=== PATIENT | female | born 1970 ===

== ENCOUNTER 2018-01-27 11:22 | Inpatient (IN) | payer OTHER ==
[2018-01-27] MEDS ORDERED: Sodium Chloride 0.9% 1,000 ML IV STA (11:40)
--- NOTE | 2018-01-27 11:45 | ED PDOC ---
HPI: Abdomen Time Seen by Provider: 01/27/18 11:34 Chief Complaint (Nursing): Abdominal Pain Chief Complaint (Provider): ABD PAIN X 4 WEEKS History Per: Patient (48 Y/O FEMALE HERE WITH INTERMITTENT RUQ ABD PAIN X 4 WEEKS AFTER EATING. DENIES ANY URINARY DIFFICULTY/ DENIES ANY FEVERS/CHILLS. HAS H/O CXN. HAS BEEN STARTED ON OMEPRAZOLE BY PMD WITH NO IMPROVEMENT. HAS HAD US 8 DAYS AGO BUT STATES PAIN DRAMATICALLY WORSENING. DOES NOT KNOW RESULTS OF US OF YET.) Past Medical History Reviewed: Historical Data, Nursing Documentation, Vital Signs Vital Signs: Last Vital Signs Temp 98.6 F 01/27/18 11:28 Pulse 68 01/27/18 13:00 Resp 18 01/27/18 13:00 BP 120/70 01/27/18 13:00 Pulse Ox 98 01/27/18 17:17 - Family History Family History: States: No Known Family Hx - Home Medications Home Medications: Ambulatory Orders Medication Instructions Recorded Cyanocobalamin [Vitamin B12 1000 1 tab PO DAILY 01/27/18 mcg Tab] Omeprazole [Omeprazole] 20 mg PO DAILY PRN 01/27/18 Sucralfate [Carafate Tab] 1 gm PO ACHS 01/27/18 - Allergies Allergies/Adverse Reactions: Allergies Allergy/AdvReac Type Severity Reaction Status Date / Time No Known Allergies Allergy Verified 01/27/18 11:28 Review of Systems ROS Statement: Except As Marked, All Systems Reviewed And Found Negative Gastrointestinal: Positive for: Abdominal Pain Physical Exam - Reviewed Nursing Documentation Reviewed: Yes Vital Signs Reviewed: Yes - Physical Exam Appears: Positive for: Well, Non-toxic, No Acute Distress Head Exam: Positive for: ATRAUMATIC, NORMAL INSPECTION, NORMOCEPHALIC Skin: Positive for: Normal Color, Warm, DRY Eye Exam: Positive for: EOMI, Normal appearance, PERRL ENT: Positive for: Normal ENT Inspection Neck: Positive for: Normal, Painless ROM Cardiovascular/Chest: Positive for: Regular Rate, Rhythm Respiratory: Positive for: CNT, Normal Breath Sounds Gastrointestinal/Abdominal: Positive for: Normal Exam, Soft, Tenderness (RUQ TENDERNESS) Back: Positive for: Normal Inspection Extremity: Positive for: Normal ROM Neurologic/Psych: Positive for: Alert, Oriented - Laboratory Results Result Diagrams: 01/27/18 12:30 01/27/18 12:30 - ECG O2 Sat by Pulse Oximetry: 98 - Progress ED Course And Treament: PEPCID 20 MG IV X 1 DOSE ZOFRAN 4 MG IV X 1 DOSE NS 1 LITER WIDE OPEN EKG: NSR 62BPM NO ECTOPY NO ACUTE CHANGES ABDOMEN US RUQ: IMPRESSION: Calcified cholelithiasis with limited evaluation for wall thickening. If there is clinical concern for acute cholecystitis, nuclear medicine HIDA scan can be obtained to further evaluate patency of the cystic duct. Diffusely hypoechoic appearance of the pancreas with 4 mm calcification in the pancreatic tail. Findings may represent acute on chronic pancreatitis. Clinical correlation is recommended. CT ABD/PELVIS ORDEREDIMPRESSION: Cholelithiasis with nonspecific gallbladder wall edema, but without pericholecystic inflammation. Findings are equivocal for acute cholecystitis. Nuclear medicine HIDA scan can be obtained to evaluate patency of the cystic duct. Enlarged pancreas with loss of definition of pancreatic clefts. No peripancreatic inflammation. Findings are nonspecific, but can be seen in the setting of autoimmune pancreatitis. Clinical and serologic correlation is recommended. CASE D/W DR REDMAN CASE D/W SURG RESIDENT. CASE D/W DR. SOW 17:17P Disposition - Clinical Impression Clinical Impression: Cholelithiasis, RUQ abdominal pain - Patient ED Disposition Is Patient to be Admitted: Yes - Disposition Disposition Time: 17:07 Condition: FAIR - Pt Status Changed To: Hospital Disposition Of: Inpatient - Admit Certification Admit to Inpatient:: After my assessment, the patient will require hospitalization for at least two midnights. This is because of the severity of symptoms shown, intensity of services needed, and/or the medical risk in this patient being treated as an outpatient.
[2018-01-27 12:15] LABS: SQUAMOUS EPITHIAL 1 /hpf (0-5); URINE BILIRUBIN NEGATIVE (NEGATIVE); URINE BLOOD SMALL (NEGATIVE); URINE CLARITY SLIGHTY-CLOUDY (Clear); URINE COLOR YELLOW (YELLOW); URINE GLUCOSE (UA) NEG (Normal); URINE LEUKOCYTE ESTERASE TRACE Leu/uL (Negative); URINE PROTEIN NEGATIVE (NEGATIVE)
[2018-01-27 12:39] LABS: BASO % 0.7 % (0.0-2.0); EOS # 0.5 K/uL (0.0-0.7); EOS % 9.2 % (0.0-4.0); HEMOGLOBIN 14.5 g/dL (12.0-16.0); LYMPH # 1.2 K/uL (1.0-4.3); LYMPH % 24.4 % (20.0-40.0); MEAN CELL VOLUME 90.3 fl (81.0-99.0); MEAN CORPUSCULAR HEMOGLOBIN 30.9 pg (27.0-31.0); MEAN CORPUSCULAR HGB CONC 34.2 g/dL (33.0-37.0); MEAN PLATELET VOLUME 9.1 fl (7.2-11.7); MONO # 0.4 K/uL (0.0-0.8); MONO % 7.2 % (0.0-10.0); NEUT # 2.9 K/uL (1.8-7.0); NEUT % 58.5 % (50.0-75.0); NRBC % 0.1 % (0.0-0.0); RBC 4.7 Mil/uL (3.80-5.20)
[2018-01-27 12:54] LABS: ALB/GLOB RATIO 1.3 (1.0-2.1); ALBUMIN 4.6 g/dL (3.5-5.0); ALT/SGPT 56 U/L (9-52); AST/SGOT 53 U/L (14-36); BLOOD UREA NITROGEN 16 mg/dl (7-17); CALCIUM 9.7 mg/dL (8.4-10.2); GFR AFRICAN-AMERICAN > 60; GFR NON-AFRICAN AMERICAN > 60; LIPASE 117 U/L (23-300)
--- NOTE | 2018-01-27 13:27 | US ---
HISTORY: RUQ ABD PAIN; EVALUATE FOR GALLBLADDER DISEASE COMPARISON: None. TECHNIQUE: Sonographic evaluation of the right upper quadrant of the abdomen. FINDINGS: LIVER: Measures 11.0 cm in length. Normal echogenicity of the liver parenchyma. Hepatic granulomas. No intrahepatic bile duct dilatation. GALLBLADDER: Large gallstones, limiting evaluation for wall thickening. COMMON BILE DUCT: Measures 5 mm. No stones. No dilatation. PANCREAS: Hypoechoic appearance of the pancreas. 4 mm calcification in the pancreatic tail. No ductal dilatation. RIGHT KIDNEY: Measures 9.5 x 4.2 x 4.1 cm in length. Normal echogenicity. No calculus, mass, or hydronephrosis. AORTA: No aneurysmal dilatation. IVC: Unremarkable. OTHER FINDINGS: None . IMPRESSION: Calcified cholelithiasis with limited evaluation for wall thickening. If there is clinical concern for acute cholecystitis, nuclear medicine HIDA scan can be obtained to further evaluate patency of the cystic duct. Diffusely hypoechoic appearance of the pancreas with 4 mm calcification in the pancreatic tail. Findings may represent acute on chronic pancreatitis. Clinical correlation is recommended.
[2018-01-27] MEDS ORDERED: Iohexol 300 100 ML IJ ONE (15:36)
[2018-01-27] MEDS ORDERED: Sodium Chloride 0.9% 100 ML ONE (15:37)
--- NOTE | 2018-01-27 16:37 | CT ---
PROCEDURE: CT Abdomen and Pelvis with contrast HISTORY: R/O CHOLECYSTITIS COMPARISON: None. TECHNIQUE: Contrast dose: 85 mL Omnipaque 300 Radiation dose: Total exam DLP = 274.9 mGy-cm. This CT exam was performed using one or more of the following dose reduction techniques: Automated exposure control, adjustment of the mA and/or kV according to patient size, and/or use of iterative reconstruction technique. FINDINGS: LOWER THORAX: Unremarkable. LIVER: Hepatic steatosis. No gross lesion or ductal dilatation. GALLBLADDER AND BILE DUCTS: Cholelithiasis with nonspecific gallbladder wall edema. No pericholecystic inflammation. PANCREAS: Enlarged pancreas. No peripancreatic inflammation. No gross lesion or ductal dilatation. SPLEEN: Unremarkable. ADRENALS: Unremarkable. No mass. KIDNEYS AND URETERS: Unremarkable. No hydronephrosis. No solid mass. VASCULATURE: Unremarkable. No aortic aneurysm. BOWEL: Unremarkable. No obstruction. No gross mural thickening. APPENDIX: Normal appendix. PERITONEUM: Unremarkable. No free fluid. No free air. LYMPH NODES: Unremarkable. No enlarged lymph nodes. BLADDER: Unremarkable. REPRODUCTIVE: Unremarkable. BONES: No acute fracture. OTHER FINDINGS: None. IMPRESSION: Cholelithiasis with nonspecific gallbladder wall edema, but without pericholecystic inflammation. Findings are equivocal for acute cholecystitis. Nuclear medicine HIDA scan can be obtained to evaluate patency of the cystic duct. Enlarged pancreas with loss of definition of pancreatic clefts. No peripancreatic inflammation. Findings are nonspecific, but can be seen in the setting of autoimmune pancreatitis. Clinical and serologic correlation is recommended.
[2018-01-27] MEDS ORDERED: Piperacillin/Tazobact 3.375 GM in Sodium Chloride 0.9% 100 ML IVPB STA (16:45)
[2018-01-27] MEDS ORDERED: Piperacillin/Tazobact 3.375 gm Inj IVPB ONE (17:03)
--- NOTE | 2018-01-27 17:55 | CP.PCM.CON ---
<ParulRalph D - Last Filed: 01/27/18 17:49> History of Present Illness - History of Present Illness History of Present Illness: SURGERY CONSULT NOTE FOR DR. SOW 48F presents with abdominal pain that started 2 months ago. Pain is located in the RUQ and radiates to the right back. Pain has been on and off over the last 2 months. She admits the pain is associated with food, especially fatty foods. Patient denies nausea, vomiting, fevers or chills. She does not have any change in bowel movements. PMH: Gastritis PSH: , abdominal liposuction Social: Admits to smoking for one year last year, admits to social alcohol use, denies illicit drug use Allergies: NKDA Past Patient History - Past Social History Smoking Status: Never Smoked - PSYCHIATRIC Hx Substance Use: No - SURGICAL HISTORY Hx Section: Yes - ANESTHESIA Hx Anesthesia: Yes Hx Anesthesia Reactions: No Meds Allergies/Adverse Reactions: Allergies Allergy/AdvReac Type Severity Reaction Status Date / Time No Known Allergies Allergy Verified 01/27/18 11:28 Physical Exam - Constitutional Appears: Well, Non-toxic, No Acute Distress - Head Exam Head Exam: ATRAUMATIC - Eye Exam Eye Exam: EOMI, PERRL - Respiratory Exam Respiratory Exam: Clear to Auscultation Bilateral, NORMAL BREATHING PATTERN - Cardiovascular Exam Cardiovascular Exam: REGULAR RHYTHM, +S1, +S2 - GI/Abdominal Exam GI & Abdominal Exam: Soft, Tenderness (RUQ tenderness, +murphys sign). absent: Distended, Firm, Guarding, Rebound, Rigid - Extremities Exam Extremities exam: Negative for: pedal edema, tenderness - Neurological Exam Neurological exam: Alert, Oriented x3 - Skin Skin Exam: Dry, Intact, Normal Color, Warm Results - Vital Signs Recent Vital Signs: Last Vital Signs Temp 98.6 F 01/27/18 11:28 Pulse 68 01/27/18 13:00 Resp 18 01/27/18 13:00 BP 120/70 01/27/18 13:00 Pulse Ox 98 01/27/18 17:17 - Labs Result Diagrams: 01/27/18 12:30 01/27/18 12:30 Labs: Laboratory Results - last 24 hr 01/27/18 01/27/18 01/27/18 11:53 12:30 12:30 WBC 5.0 RBC 4.70 Hgb 14.5 Hct 42.4 MCV 90.3 MCH 30.9 MCHC 34.2 RDW 13.0 Plt Count 253 MPV 9.1 Neut % (Auto) 58.5 Lymph % (Auto) 24.4 [place] % (Auto) 7.2 Eos % (Auto) 9.2 H Baso % (Auto) 0.7 Neut # (Auto) 2.9 Lymph # (Auto) 1.2 [place] # (Auto) 0.4 Eos # (Auto) 0.5 Baso # (Auto) 0.0 Sodium 143 Potassium 5.3 H Chloride 103 Carbon Dioxide 25 Anion Gap 20 BUN 16 Creatinine 0.6 L Est GFR ( Amer) > 60 Est GFR (Non-Af Amer) > 60 Random Glucose 90 Calcium 9.7 Total Bilirubin 1.0 AST 53 H ALT 56 H Alkaline Phosphatase 117 Troponin I Total Protein 8.3 H Albumin 4.6 Globulin 3.7 Albumin/Globulin Ratio 1.3 Lipase 117 Urine Color Yellow Urine Clarity Slighty-cloudy Urine pH 5.0 Ur Specific Blanca 1.029 Urine Protein Negative Urine Glucose (UA) Neg Urine Ketones Negative Urine Blood Small Urine Nitrate Negative Urine Bilirubin Negative Urine Urobilinogen 2.0 H Ur Leukocyte Esterase Trace Urine RBC (Auto) 7 H Urine Microscopic WBC 1 Ur Squamous Epith Cells 1 01/27/18 12:58 WBC RBC Hgb Hct MCV MCH MCHC RDW Plt Count MPV Neut % (Auto) Lymph % (Auto) [place] % (Auto) Eos % (Auto) Baso % (Auto) Neut # (Auto) Lymph # (Auto) [place] # (Auto) Eos # (Auto) Baso # (Auto) Sodium Potassium Chloride Carbon Dioxide Anion Gap BUN Creatinine Est GFR ( Amer) Est GFR (Non-Af Amer) Random Glucose Calcium Total Bilirubin AST ALT Alkaline Phosphatase Troponin I 0.0210 Total Protein Albumin Globulin Albumin/Globulin Ratio Lipase Urine Color Urine Clarity Urine pH Ur Specific Blanca Urine Protein Urine Glucose (UA) Urine Ketones Urine Blood Urine Nitrate Urine Bilirubin Urine Urobilinogen Ur Leukocyte Esterase Urine RBC (Auto) Urine Microscopic WBC Ur Squamous Epith Cells Assessment & Plan - Assessment and Plan (Free Text) Assessment: 48F with cholecystitis Plan: NPO, IVF Antibiotics Pain control Nausea control HIDA ordered follow up result Discussed with Dr. Emy Teran, PGY2 <David Sow - Last Filed: 01/28/18 15:21> History of Present Illness - History of Present Illness History of Present Illness: Patient was seen and examined at the bedside. Agree with resident's note above. Currently states that abdominal pain has improved. Meds - Medications Medications: Current Medications Acetaminophen (Tylenol 325mg Tab) 650 mg PO Q6 PRN PRN Reason: Fever >100.4 F Famotidine (Pepcid) 20 mg IVP Q12 [facility] Last Admin: 01/28/18 08:51 Dose: 20 mg Sodium Chloride (Sodium Chloride 0.9%) 1,000 mls @ 125 mls/hr IV .Q8H [facility] Stop: 01/28/18 18:00 Last Admin: 01/28/18 09:01 Dose: 125 mls/hr Ampicillin Sodium/Sulbactam (Sodium 3 gm/ Sodium Chloride) 100 mls @ 100 mls/ hr IVPB Q6 RINA PRN Reason: Protocol Last Admin: 01/28/18 08:59 Dose: 100 mls/hr Morphine Sulfate (Morphine) 1 mg IVP Q4 PRN PRN Reason: Pain, moderate (4-7) Last Admin: 01/27/18 23:58 Dose: 1 mg Morphine Sulfate (Morphine) 2 mg IVP Q4 PRN PRN Reason: Pain, severe (8-10) Ondansetron HCl (Zofran Inj) 4 mg IVP Q4 PRN PRN Reason: Nausea/Vomiting Pantoprazole Sodium (Protonix Inj) 40 mg IVP BID [facility] Last Admin: 01/28/18 08:51 Dose: 40 mg Physical Exam - GI/Abdominal Exam Additional comments: soft, mildly tender in the epigastrium and RUQ, ND, BS+, no rebound, no guarding , negative Talbot's sign, well healed scars from prior surgeries Results - Vital Signs Recent Vital Signs: Last Vital Signs Temp 97.6 F 01/28/18 08:19 Pulse 60 01/28/18 08:19 Resp 18 01/28/18 08:19 BP 96/60 L 01/28/18 08:19 Pulse Ox 99 01/28/18 08:19 - Labs Result Diagrams: 01/28/18 05:25 01/28/18 05:25 Labs: Laboratory Results - last 24 hr 01/27/18 01/28/18 01/28/18 19:30 05:25 05:25 WBC 4.5 L RBC 4.29 Hgb 13.4 Hct 39.1 MCV 91.3 MCH 31.2 H MCHC 34.1 RDW 13.0 Plt Count 234 MPV 9.1 Neut % (Auto) 42.0 L Lymph % (Auto) 38.7 [place] % (Auto) 7.8 Eos % (Auto) 10.4 H Baso % (Auto) 1.1 Neut # (Auto) 1.9 Lymph # (Auto) 1.7 [place] # (Auto) 0.3 Eos # (Auto) 0.5 Baso # (Auto) 0.0 PT 11.0 INR 1.0 APTT 33.0 Sodium 144 Potassium 4.2 Chloride 105 Carbon Dioxide 25 Anion Gap 18 BUN 11 Creatinine 0.6 L Est GFR ( Amer) > 60 Est GFR (Non-Af Amer) > 60 Random Glucose 79 Calcium 8.5 Total Bilirubin 0.7 AST 32 ALT 65 H Alkaline Phosphatase 90 Total Protein 6.8 Albumin 3.8 Globulin 3.0 Albumin/Globulin Ratio 1.2 - Imaging and Cardiology US - abdomen Status: Image reviewed by me, Report reviewed by me Assessment & Plan - Assessment and Plan (Free Text) Plan: - start clear liquid diet - Pain control - IV fluids - Continue antibiotics - Zofran prn - repeat labs in am - Plan for cholecystectomy on 01/30/18 - Will follow
[2018-01-27] MEDS ORDERED: Pantoprazole 40 MG in Sodium Chloride 0.9% 100 ML IVPB SCH (19:45)
[2018-01-27] MEDS: Sodium Chloride 0.9% 1,000 ML IV SCH (20:56)
[2018-01-28 07:14] LABS: BASO % 1.1 % (0.0-2.0); EOS # 0.5 K/uL (0.0-0.7); EOS % 10.4 % (0.0-4.0); HEMOGLOBIN 13.4 g/dL (12.0-16.0); LYMPH # 1.7 K/uL (1.0-4.3); LYMPH % 38.7 % (20.0-40.0); MEAN CELL VOLUME 91.3 fl (81.0-99.0); MEAN CORPUSCULAR HEMOGLOBIN 31.2 pg (27.0-31.0); MEAN CORPUSCULAR HGB CONC 34.1 g/dL (33.0-37.0); MEAN PLATELET VOLUME 9.1 fl (7.2-11.7); MONO # 0.3 K/uL (0.0-0.8); MONO % 7.8 % (0.0-10.0); NEUT # 1.9 K/uL (1.8-7.0); NRBC % 0.1 % (0.0-0.0); RBC 4.29 Mil/uL (3.80-5.20); WHITE BLOOD COUNT 4.5 K/uL (4.8-10.8)
[2018-01-28 07:32] LABS: ALB/GLOB RATIO 1.2 (1.0-2.1); ALBUMIN 3.8 g/dL (3.5-5.0); ALT/SGPT 65 U/L (9-52); AST/SGOT 32 U/L (14-36); BLOOD UREA NITROGEN 11 mg/dl (7-17); CALCIUM 8.5 mg/dL (8.4-10.2); GFR AFRICAN-AMERICAN > 60; GFR NON-AFRICAN AMERICAN > 60
--- NOTE | 2018-01-28 08:49 | CP.PCM.PN ---
<ArpanNusrat - Last Filed: 01/28/18 08:46> Subjective - Date & Time of Evaluation Date of Evaluation: 01/28/18 Time of Evaluation: 08:46 - Subjective Subjective: Surgery Patient seen and examined. Pain controlled. Denies Fever, chills, nausea, vomiting, diarrhea, chest pain. + amb. Objective - Vital Signs/Intake and Output Vital Signs (last 24 hours): Temp Pulse Resp BP Pulse Ox 97.6 F 60 18 96/60 L 99 01/28/18 08:19 01/28/18 08:19 01/28/18 08:19 01/28/18 08:19 01/28/18 08:19 - Medications Medications: Current Medications Acetaminophen (Tylenol 325mg Tab) 650 mg PO Q6 PRN PRN Reason: Fever >100.4 F Famotidine (Pepcid) 20 mg IVP Q12 [facility] Last Admin: 01/27/18 21:22 Dose: 20 mg Sodium Chloride (Sodium Chloride 0.9%) 1,000 mls @ 125 mls/hr IV .Q8H [facility] Stop: 01/28/18 18:00 Last Admin: 01/27/18 20:56 Dose: 125 mls/hr Ampicillin Sodium/Sulbactam (Sodium 3 gm/ Sodium Chloride) 100 mls @ 100 mls/ hr IVPB Q6 RINA PRN Reason: Protocol Last Admin: 01/28/18 04:53 Dose: 100 mls/hr Morphine Sulfate (Morphine) 1 mg IVP Q4 PRN PRN Reason: Pain, moderate (4-7) Last Admin: 01/27/18 23:58 Dose: 1 mg Morphine Sulfate (Morphine) 2 mg IVP Q4 PRN PRN Reason: Pain, severe (8-10) Ondansetron HCl (Zofran Inj) 4 mg IVP Q4 PRN PRN Reason: Nausea/Vomiting Pantoprazole Sodium (Protonix Inj) 40 mg IVP BID [facility] Last Admin: 01/27/18 22:54 Dose: 40 mg - Labs Labs: 01/28/18 05:25 01/28/18 05:25 PT 11.0 Seconds (9.8-13.1) 01/27/18 19:30 INR 1.0 (0.9-1.2) 01/27/18 19:30 APTT 33.0 Seconds (25.6-37.1) 01/27/18 19:30 - Constitutional Appears: No Acute Distress - Head Exam Head Exam: ATRAUMATIC, NORMAL INSPECTION, NORMOCEPHALIC - Eye Exam Eye Exam: EOMI, Normal appearance, PERRL Pupil Exam: NORMAL ACCOMODATION, PERRL - ENT Exam ENT Exam: Mucous Membranes Moist, Normal Exam - Neck Exam Neck Exam: Full ROM, Normal Inspection. absent: Lymphadenopathy - Respiratory Exam Respiratory Exam: Clear to Ausculation Bilateral, NORMAL BREATHING PATTERN - Cardiovascular Exam Cardiovascular Exam: REGULAR RHYTHM, +S1, +S2. absent: Murmur - GI/Abdominal Exam GI & Abdominal Exam: Soft, Tenderness, Normal Bowel Sounds Additional comments: RUQ TTP - Extremities Exam Extremities Exam: Full ROM, Normal Capillary Refill, Normal Inspection. absent : Joint Swelling, Pedal Edema - Back Exam Back Exam: NORMAL INSPECTION - Neurological Exam Neurological Exam: Alert, Awake, CN II-XII Intact, Normal Gait, Oriented x3 - Psychiatric Exam Psychiatric exam: Normal Affect, Normal Mood - Skin Skin Exam: Dry, Intact, Normal Color, Warm Assessment and Plan - Assessment and Plan (Free Text) Assessment: 48F with cholecystitis Plan: IVF Antibiotics Pain control Nausea control HIDA ordered follow up result Will Discuss with Dr. Quevedo <David Quevedo - Last Filed: 01/28/18 15:42> Subjective - Date & Time of Evaluation Time of Evaluation: 14:45 - Subjective Subjective: Patient was seen and examined at the bedside. Agree with resident's note above. Objective - Vital Signs/Intake and Output Vital Signs (last 24 hours): Temp Pulse Resp BP Pulse Ox 97.6 F 60 18 96/60 L 99 01/28/18 08:19 01/28/18 08:19 01/28/18 08:19 01/28/18 08:19 01/28/18 08:19 - Medications Medications: Current Medications Acetaminophen (Tylenol 325mg Tab) 650 mg PO Q6 PRN PRN Reason: Fever >100.4 F Famotidine (Pepcid) 20 mg IVP Q12 [facility] Last Admin: 01/28/18 08:51 Dose: 20 mg Sodium Chloride (Sodium Chloride 0.9%) 1,000 mls @ 125 mls/hr IV .Q8H [facility] Stop: 01/28/18 18:00 Last Admin: 01/28/18 09:01 Dose: 125 mls/hr Ampicillin Sodium/Sulbactam (Sodium 3 gm/ Sodium Chloride) 100 mls @ 100 mls/ hr IVPB Q6 RINA PRN Reason: Protocol Last Admin: 01/28/18 08:59 Dose: 100 mls/hr Morphine Sulfate (Morphine) 1 mg IVP Q4 PRN PRN Reason: Pain, moderate (4-7) Last Admin: 01/27/18 23:58 Dose: 1 mg Morphine Sulfate (Morphine) 2 mg IVP Q4 PRN PRN Reason: Pain, severe (8-10) Ondansetron HCl (Zofran Inj) 4 mg IVP Q4 PRN PRN Reason: Nausea/Vomiting Pantoprazole Sodium (Protonix Inj) 40 mg IVP BID [facility] Last Admin: 01/28/18 08:51 Dose: 40 mg - Labs Labs: 01/28/18 05:25 01/28/18 05:25 PT 11.0 Seconds (9.8-13.1) 01/27/18 19:30 INR 1.0 (0.9-1.2) 01/27/18 19:30 APTT 33.0 Seconds (25.6-37.1) 01/27/18 19:30 Assessment and Plan - Assessment and Plan (Free Text) Plan: - start clear liquid diet - pain control - IV fluids - Antibiotics - Repeat labs in am - Plan for cholecystectomy on 01/30/18 - Will follow
[2018-01-28] MEDS: Sodium Chloride 0.9% 1,000 ML IV SCH ×3 (09:01→18:26)
--- NOTE | 2018-01-28 09:32 | CP.PCM.HP ---
History of Present Illness - History of Present Illness History of Present Illness: Cc: Abdominal pain A 48 year old female with a history of gastritis who presented to the ED with complains of abdominal pain off and on x 2 months. The pain is mostly localized in the RUQ and radiated to the back. The pain is sharp, 8/10 in severity and aggravated with food especially fatty foods. Patient denies nausea, vomiting or diarrhea, chest pain, sob, fever or chills. CT of Abd/Pelvis showed cholelithiasis with gall bladder wall thickening. The patient was admitted for further management. Present on Admission - Present on Admission Any Indicators Present on Admission: No Review of Systems - Review of Systems All systems: reviewed and no additional remarkable complaints except (as stated) - Constitutional Constitutional: absent: Chills, Fever - Cardiovascular Cardiovascular: absent: Chest Pain, Dyspnea - Respiratory Respiratory: absent: Dyspnea - Gastrointestinal Gastrointestinal: Abdominal Pain, Heartburn. absent: Nausea, Vomiting Past Patient History - Infectious Disease Hx of Infectious Diseases: None - Past Medical History & Family History Past Medical History?: Yes - Past Social History Smoking Status: Never Smoked - CARDIAC Hx Cardiac Disorders: No - PULMONARY Hx Respiratory Disorders: No - NEUROLOGICAL Hx Neurological Disorder: No - HEENT Hx HEENT Problems: No - RENAL Hx Chronic Kidney Disease: No - ENDOCRINE/METABOLIC Hx Endocrine Disorders: No - HEMATOLOGICAL/ONCOLOGICAL Hx Blood Disorders: No Hx AIDS: No Hx Human Immunodeficiency Virus (HIV): No - MUSCULOSKELETAL/RHEUMATOLOGICAL Hx Falls: No Hx Osteoporosis: Yes - GASTROINTESTINAL Hx Gastritis: Yes - GENITOURINARY/GYNECOLOGICAL Hx Genitourinary Disorders: No - PSYCHIATRIC Hx Psychophysiologic Disorder: No Hx Substance Use: No - SURGICAL HISTORY Hx Surgeries: Yes Hx Section: Yes Other/Comment: liposuction - ANESTHESIA Hx Anesthesia: Yes Hx Anesthesia Reactions: No Hx Malignant Hyperthermia: No Has any member of the family had a problem w/ anesthesia?: No Meds Allergies/Adverse Reactions: Allergies Allergy/AdvReac Type Severity Reaction Status Date / Time No Known Allergies Allergy Verified 01/27/18 11:28 Physical Exam - Constitutional Appears: Well, No Acute Distress - Head Exam Head Exam: ATRAUMATIC, NORMOCEPHALIC - Eye Exam Eye Exam: EOMI, Normal appearance, PERRL Pupil Exam: NORMAL ACCOMODATION, PERRL - ENT Exam ENT Exam: Mucous Membranes Moist, Normal Exam - Neck Exam Neck exam: Positive for: Full Rom, Normal Inspection - Respiratory Exam Respiratory Exam: Clear to Auscultation Bilateral, NORMAL BREATHING PATTERN - Cardiovascular Exam Cardiovascular Exam: REGULAR RHYTHM, +S1, +S2 - GI/Abdominal Exam GI & Abdominal Exam: Normal Bowel Sounds, Soft, Tenderness (slight) - Rectal Exam Rectal Exam: Deferred - Extremities Exam Extremities exam: Positive for: full ROM, normal inspection - Back Exam Back exam: NORMAL INSPECTION - Neurological Exam Neurological exam: Alert, CN II-XII Intact, Oriented x3 - Psychiatric Exam Psychiatric exam: Normal Affect, Normal Mood - Skin Skin Exam: Dry, Normal Color, Warm Results - Vital Signs Recent Vital Signs: Last Vital Signs Temp 97.6 F 01/28/18 08:19 Pulse 60 01/28/18 08:19 Resp 18 01/28/18 08:19 BP 96/60 L 01/28/18 08:19 Pulse Ox 99 01/28/18 08:19 - Labs Result Diagrams: 01/30/18 08:23 01/29/18 05:30 Labs: Laboratory Results - last 24 hr 01/27/18 01/27/18 01/27/18 11:53 12:30 12:30 WBC 5.0 RBC 4.70 Hgb 14.5 Hct 42.4 MCV 90.3 MCH 30.9 MCHC 34.2 RDW 13.0 Plt Count 253 MPV 9.1 Neut % (Auto) 58.5 Lymph % (Auto) 24.4 [place] % (Auto) 7.2 Eos % (Auto) 9.2 H Baso % (Auto) 0.7 Neut # (Auto) 2.9 Lymph # (Auto) 1.2 [place] # (Auto) 0.4 Eos # (Auto) 0.5 Baso # (Auto) 0.0 PT INR APTT Sodium 143 Potassium 5.3 H Chloride 103 Carbon Dioxide 25 Anion Gap 20 BUN 16 Creatinine 0.6 L Est GFR ( Amer) > 60 Est GFR (Non-Af Amer) > 60 Random Glucose 90 Calcium 9.7 Total Bilirubin 1.0 AST 53 H ALT 56 H Alkaline Phosphatase 117 Troponin I Total Protein 8.3 H Albumin 4.6 Globulin 3.7 Albumin/Globulin Ratio 1.3 Lipase 117 Urine Color Yellow Urine Clarity Slighty-cloudy Urine pH 5.0 Ur Specific [place] 1.029 Urine Protein Negative Urine Glucose (UA) Neg Urine Ketones Negative Urine Blood Small Urine Nitrate Negative Urine Bilirubin Negative Urine Urobilinogen 2.0 H Ur Leukocyte Esterase Trace Urine RBC (Auto) 7 H Urine Microscopic WBC 1 Ur Squamous Epith Cells 1 01/27/18 01/27/18 01/28/18 12:58 19:30 05:25 WBC 4.5 L RBC 4.29 Hgb 13.4 Hct 39.1 MCV 91.3 MCH 31.2 H MCHC 34.1 RDW 13.0 Plt Count 234 MPV 9.1 Neut % (Auto) 42.0 L Lymph % (Auto) 38.7 [place] % (Auto) 7.8 Eos % (Auto) 10.4 H Baso % (Auto) 1.1 Neut # (Auto) 1.9 Lymph # (Auto) 1.7 [place] # (Auto) 0.3 Eos # (Auto) 0.5 Baso # (Auto) 0.0 PT 11.0 INR 1.0 APTT 33.0 Sodium Potassium Chloride Carbon Dioxide Anion Gap BUN Creatinine Est GFR ( Amer) Est GFR (Non-Af Amer) Random Glucose Calcium Total Bilirubin AST ALT Alkaline Phosphatase Troponin I 0.0210 Total Protein Albumin Globulin Albumin/Globulin Ratio Lipase Urine Color Urine Clarity Urine pH Ur Specific [place] Urine Protein Urine Glucose (UA) Urine Ketones Urine Blood Urine Nitrate Urine Bilirubin Urine Urobilinogen Ur Leukocyte Esterase Urine RBC (Auto) Urine Microscopic WBC Ur Squamous Epith Cells 01/28/18 05:25 WBC RBC Hgb Hct MCV MCH MCHC RDW Plt Count MPV Neut % (Auto) Lymph % (Auto) [place] % (Auto) Eos % (Auto) Baso % (Auto) Neut # (Auto) Lymph # (Auto) [place] # (Auto) Eos # (Auto) Baso # (Auto) PT INR APTT Sodium 144 Potassium 4.2 Chloride 105 Carbon Dioxide 25 Anion Gap 18 BUN 11 Creatinine 0.6 L Est GFR ( Amer) > 60 Est GFR (Non-Af Amer) > 60 Random Glucose 79 Calcium 8.5 Total Bilirubin 0.7 AST 32 ALT 65 H Alkaline Phosphatase 90 Troponin I Total Protein 6.8 Albumin 3.8 Globulin 3.0 Albumin/Globulin Ratio 1.2 Lipase Urine Color Urine Clarity Urine pH Ur Specific [place] Urine Protein Urine Glucose (UA) Urine Ketones Urine Blood Urine Nitrate Urine Bilirubin Urine Urobilinogen Ur Leukocyte Esterase Urine RBC (Auto) Urine Microscopic WBC Ur Squamous Epith Cells - Imaging and Cardiology CT Abd/Pelvis Additional comment: IMPRESSION: Cholelithiasis with nonspecific gallbladder wall edema, but without pericholecystic inflammation. Findings are equivocal for acute cholecystitis. Nuclear medicine HIDA scan can be obtained to evaluate patency of the cystic duct. Enlarged pancreas with loss of definition of pancreatic clefts. No peripancreatic inflammation. Findings are nonspecific, but can be seen in the setting of autoimmune pancreatitis. Clinical and serologic correlation is recommended. Assessment & Plan (1) Cholecystitis Assessment and Plan: IV antibiotics Surgery consult, cholecystectomy planned for tuesday IVF Pepcid q12 hrs clear liquid diet pain medications anti-emetics prn Patient is medically stable for planned surgery Status: Acute Priority: High
--- NOTE | 2018-01-28 11:40 | CARD ---
APPROVED REPORT EKG Measurement Heart [id number] <Conclusion> Normal sinus rhythm Normal ECG
--- NOTE | 2018-01-29 01:22 | CP.PCM.CON ---
History of Present Illness - History of Present Illness History of Present Illness: 48 yo female admitted after having RUQ pain for 1-2 months. Was given Omeprazole 20 BID by PMD witout improvement. Pain became more intense and patient came to ER. Review of Systems - Constitutional Constitutional: absent: Chills - EENT Eyes: absent: Blurred Vision Ears: absent: Decreased Hearing Nose/Mouth/Throat: absent: Epistaxis - Cardiovascular Cardiovascular: absent: Chest Pain - Respiratory Respiratory: absent: Dyspnea - Gastrointestinal Gastrointestinal: As Per HPI - Genitourinary Genitourinary: absent: Change in Urinary Stream Past Patient History - Past Medical History & Family History Past Medical History?: Yes - Past Social History Smoking Status: Never Smoked - CARDIAC Hx Cardiac Disorders: No - PULMONARY Hx Respiratory Disorders: No - NEUROLOGICAL Hx Neurological Disorder: No - HEENT Hx HEENT Problems: No - RENAL Hx Chronic Kidney Disease: No - ENDOCRINE/METABOLIC Hx Endocrine Disorders: No - HEMATOLOGICAL/ONCOLOGICAL Hx Blood Disorders: No Hx AIDS: No Hx Human Immunodeficiency Virus (HIV): No - MUSCULOSKELETAL/RHEUMATOLOGICAL Hx Falls: No Hx Osteoporosis: Yes - GASTROINTESTINAL Hx Gastritis: Yes - GENITOURINARY/GYNECOLOGICAL Hx Genitourinary Disorders: No - PSYCHIATRIC Hx Psychophysiologic Disorder: No Hx Substance Use: No - SURGICAL HISTORY Hx Surgeries: Yes Hx Section: Yes Other/Comment: liposuction - ANESTHESIA Hx Anesthesia: Yes Hx Anesthesia Reactions: No Hx Malignant Hyperthermia: No Has any member of the family had a problem w/ anesthesia?: No Meds Allergies/Adverse Reactions: Allergies Allergy/AdvReac Type Severity Reaction Status Date / Time No Known Allergies Allergy Verified 01/27/18 11:28 - Medications Medications: Current Medications Acetaminophen (Tylenol 325mg Tab) 650 mg PO Q6 PRN PRN Reason: Fever >100.4 F Famotidine (Pepcid) 20 mg IVP Q12 [facility] Last Admin: 01/28/18 22:36 Dose: 20 mg Ampicillin Sodium/Sulbactam (Sodium 3 gm/ Sodium Chloride) 100 mls @ 100 mls/ hr IVPB Q6 [facility] PRN Reason: Protocol Last Admin: 01/28/18 22:38 Dose: 100 mls/hr Morphine Sulfate (Morphine) 1 mg IVP Q4 PRN PRN Reason: Pain, moderate (4-7) Last Admin: 01/27/18 23:58 Dose: 1 mg Morphine Sulfate (Morphine) 2 mg IVP Q4 PRN PRN Reason: Pain, severe (8-10) Ondansetron HCl (Zofran Inj) 4 mg IVP Q4 PRN PRN Reason: Nausea/Vomiting Pantoprazole Sodium (Protonix Inj) 40 mg IVP BID [facility] Last Admin: 01/28/18 18:19 Dose: 40 mg Physical Exam - Constitutional Appears: No Acute Distress - Head Exam Head Exam: NORMAL INSPECTION - Eye Exam Eye Exam: Normal appearance - ENT Exam ENT Exam: Mucous Membranes Moist - Neck Exam Neck exam: Positive for: Normal Inspection - Respiratory Exam Respiratory Exam: Clear to Auscultation Bilateral - Cardiovascular Exam Cardiovascular Exam: REGULAR RHYTHM - GI/Abdominal Exam GI & Abdominal Exam: Normal Bowel Sounds, Soft, Tenderness Additional comments: tender RUQ Results - Vital Signs Recent Vital Signs: Last Vital Signs Temp 97.4 F L 01/29/18 00:19 Pulse 68 01/29/18 00:19 Resp 18 01/29/18 00:19 BP 94/59 L 01/29/18 00:19 Pulse Ox 97 01/29/18 00:19 - Labs Result Diagrams: 01/28/18 05:25 01/28/18 05:25 Labs: Laboratory Results - last 24 hr 01/28/18 01/28/18 05:25 05:25 WBC 4.5 L RBC 4.29 Hgb 13.4 Hct 39.1 MCV 91.3 MCH 31.2 H MCHC 34.1 RDW 13.0 Plt Count 234 MPV 9.1 Neut % (Auto) 42.0 L Lymph % (Auto) 38.7 [place] % (Auto) 7.8 Eos % (Auto) 10.4 H Baso % (Auto) 1.1 Neut # (Auto) 1.9 Lymph # (Auto) 1.7 [place] # (Auto) 0.3 Eos # (Auto) 0.5 Baso # (Auto) 0.0 Sodium 144 Potassium 4.2 Chloride 105 Carbon Dioxide 25 Anion Gap 18 BUN 11 Creatinine 0.6 L Est GFR ( Amer) > 60 Est GFR (Non-Af Amer) > 60 Random Glucose 79 Calcium 8.5 Total Bilirubin 0.7 AST 32 ALT 65 H Alkaline Phosphatase 90 Total Protein 6.8 Albumin 3.8 Globulin 3.0 Albumin/Globulin Ratio 1.2 - Imaging and Cardiology CT scan - abdomen Status: Report reviewed by me Additional comment: IMPRESSION: Calcified cholelithiasis with limited evaluation for wall thickening. If there is clinical concern for acute cholecystitis, nuclear medicine HIDA scan can be obtained to further evaluate patency of the cystic duct. Diffusely hypoechoic appearance of the pancreas with 4 mm calcification in the pancreatic tail. Findings may represent acute on chronic pancreatitis. Clinical correlation is recommended. CT ABD/PELVIS ORDEREDIMPRESSION: Cholelithiasis with nonspecific gallbladder wall edema, but without pericholecystic inflammation. Findings are equivocal for acute cholecystitis. Nuclear medicine HIDA scan can be obtained to evaluate patency of the cystic duct. Enlarged pancreas with loss of definition of pancreatic clefts. No peripancreatic inflammation. Findings are nonspecific, but can be seen in the setting of autoimmune pancreatitis. Clinical and serologic correlation is recommended. Assessment & Plan (1) RUQ abdominal pain Assessment and Plan: Patient with cholelithiasis and epigastric/ RUQ abdominal pain. CT showed gallbladder wall edema but no pericholecystic fluid. Currently on antibiotic and PPI and feels better since admission. Continue current treatment. Status: Acute
[2018-01-29 07:13] LABS: EOS # 0.3 K/uL (0.0-0.7); EOS % 7.7 % (0.0-4.0); HEMOGLOBIN 13.1 g/dL (12.0-16.0); LYMPH # 1.3 K/uL (1.0-4.3); LYMPH % 31.4 % (20.0-40.0); MEAN CELL VOLUME 90.1 fl (81.0-99.0); MEAN CORPUSCULAR HEMOGLOBIN 31.4 pg (27.0-31.0); MEAN CORPUSCULAR HGB CONC 34.9 g/dL (33.0-37.0); MEAN PLATELET VOLUME 9.1 fl (7.2-11.7); MONO # 0.3 K/uL (0.0-0.8); MONO % 8.4 % (0.0-10.0); NEUT # 2.1 K/uL (1.8-7.0); NEUT % 51.5 % (50.0-75.0); NRBC % 4.5 % (0.0-0.0); RBC 4.18 Mil/uL (3.80-5.20); RED CELL DISTRIBUTION WIDTH 12.6 % (11.5-14.5)
--- NOTE | 2018-01-29 07:54 | CP.PCM.PN ---
<Eusebio Casanova - Last Filed: 01/29/18 08:06> Subjective - Date & Time of Evaluation Date of Evaluation: 01/29/18 Time of Evaluation: 07:40 - Subjective Subjective: General Surgery Note for Dr. Quevedo Patient seen and examined at bedside. No acute event overnight. Patient states abd pain has improved. Denies nausea/vomiting. She is tolerating liquid diet. She admits to flatus. Denies fever/chills. Plan for OR on Tuesday. Objective - Vital Signs/Intake and Output Vital Signs (last 24 hours): Temp Pulse Resp BP Pulse Ox 97.4 F L 68 18 94/59 L 97 01/29/18 00:19 01/29/18 00:19 01/29/18 00:19 01/29/18 00:19 01/29/18 00:19 - Medications Medications: Current Medications Acetaminophen (Tylenol 325mg Tab) 650 mg PO Q6 PRN PRN Reason: Fever >100.4 F Famotidine (Pepcid) 20 mg IVP Q12 [facility] Last Admin: 01/28/18 22:36 Dose: 20 mg Ampicillin Sodium/Sulbactam (Sodium 3 gm/ Sodium Chloride) 100 mls @ 100 mls/ hr IVPB Q6 [facility] PRN Reason: Protocol Last Admin: 01/29/18 05:00 Dose: 100 mls/hr Morphine Sulfate (Morphine) 1 mg IVP Q4 PRN PRN Reason: Pain, moderate (4-7) Last Admin: 01/27/18 23:58 Dose: 1 mg Morphine Sulfate (Morphine) 2 mg IVP Q4 PRN PRN Reason: Pain, severe (8-10) Ondansetron HCl (Zofran Inj) 4 mg IVP Q4 PRN PRN Reason: Nausea/Vomiting Pantoprazole Sodium (Protonix Inj) 40 mg IVP BID [facility] Last Admin: 01/28/18 18:19 Dose: 40 mg - Labs Labs: 01/28/18 05:25 01/28/18 05:25 PT 11.0 Seconds (9.8-13.1) 01/27/18 19:30 INR 1.0 (0.9-1.2) 01/27/18 19:30 APTT 33.0 Seconds (25.6-37.1) 01/27/18 19:30 - Constitutional Appears: No Acute Distress - Eye Exam Eye Exam: Normal appearance - ENT Exam ENT Exam: Mucous Membranes Moist - Respiratory Exam Respiratory Exam: NORMAL BREATHING PATTERN - Cardiovascular Exam Cardiovascular Exam: REGULAR RHYTHM - GI/Abdominal Exam GI & Abdominal Exam: Soft, Tenderness (mild RUQ), Normal Bowel Sounds. absent: Distended, Firm, Guarding, Rebound - Extremities Exam Extremities Exam: Normal Capillary Refill - Neurological Exam Neurological Exam: Alert, Awake, Normal Gait, Oriented x3 - Psychiatric Exam Psychiatric exam: Normal Affect, Normal Mood - Skin Skin Exam: Dry, Intact, Normal Color, Warm Assessment and Plan - Assessment and Plan (Free Text) Assessment: 48 F with acute cholecystitis Plan: -low fat diet -Continue IV fluids -Continue IV antibiotics -NPO past MN -Pre-op work up -Plan for OR Tuesday -Discussed with Dr. Emy Casanova PGY1 <David Quevedo - Last Filed: 01/29/18 17:11> Subjective - Date & Time of Evaluation Time of Evaluation: 16:35 - Subjective Subjective: Patient was seen and examined at the bedside. Agree with resident's note above. Objective - Vital Signs/Intake and Output Vital Signs (last 24 hours): Temp Pulse Resp BP Pulse Ox 98.1 F 69 18 91/55 L 98 01/29/18 16:32 01/29/18 16:32 01/29/18 16:32 01/29/18 16:32 01/29/18 16:32 - Medications Medications: Current Medications Acetaminophen (Tylenol 325mg Tab) 650 mg PO Q6 PRN PRN Reason: Fever >100.4 F Famotidine (Pepcid) 20 mg IVP Q12 [facility] Last Admin: 01/29/18 09:46 Dose: 20 mg Ampicillin Sodium/Sulbactam (Sodium 3 gm/ Sodium Chloride) 100 mls @ 100 mls/ hr IVPB Q6 [facility] PRN Reason: Protocol Last Admin: 01/29/18 16:25 Dose: 100 mls/hr Morphine Sulfate (Morphine) 1 mg IVP Q4 PRN PRN Reason: Pain, moderate (4-7) Last Admin: 01/27/18 23:58 Dose: 1 mg Morphine Sulfate (Morphine) 2 mg IVP Q4 PRN PRN Reason: Pain, severe (8-10) Ondansetron HCl (Zofran Inj) 4 mg IVP Q4 PRN PRN Reason: Nausea/Vomiting Pantoprazole Sodium (Protonix Inj) 40 mg IVP BID [facility] Last Admin: 01/29/18 16:25 Dose: 40 mg - Labs Labs: 01/29/18 05:30 01/29/18 05:30 PT 11.0 Seconds (9.8-13.1) 01/27/18 19:30 INR 1.0 (0.9-1.2) 01/27/18 19:30 APTT 33.0 Seconds (25.6-37.1) 01/27/18 19:30
[2018-01-29 07:56] LABS: ALB/GLOB RATIO 1.2 (1.0-2.1); ALBUMIN 3.5 g/dL (3.5-5.0); ALT/SGPT 48 U/L (9-52); AST/SGOT 31 U/L (14-36); BLOOD UREA NITROGEN 7 mg/dl (7-17); CALCIUM 8.6 mg/dL (8.4-10.2); GFR AFRICAN-AMERICAN > 60; GFR NON-AFRICAN AMERICAN > 60
--- NOTE | 2018-01-29 11:03 | CP.PCM.PN ---
Subjective - Date & Time of Evaluation Date of Evaluation: 01/29/18 Time of Evaluation: 11:01 - Subjective Subjective: Having less abdominal pain. Objective - Vital Signs/Intake and Output Vital Signs (last 24 hours): Temp Pulse Resp BP Pulse Ox 97.4 F L 62 18 96/61 L 98 01/29/18 08:16 01/29/18 08:16 01/29/18 08:16 01/29/18 08:16 01/29/18 08:16 - Medications Medications: Current Medications Acetaminophen (Tylenol 325mg Tab) 650 mg PO Q6 PRN PRN Reason: Fever >100.4 F Famotidine (Pepcid) 20 mg IVP Q12 [facility] Last Admin: 01/29/18 09:46 Dose: 20 mg Ampicillin Sodium/Sulbactam (Sodium 3 gm/ Sodium Chloride) 100 mls @ 100 mls/ hr IVPB Q6 [facility] PRN Reason: Protocol Last Admin: 01/29/18 05:00 Dose: 100 mls/hr Morphine Sulfate (Morphine) 1 mg IVP Q4 PRN PRN Reason: Pain, moderate (4-7) Last Admin: 01/27/18 23:58 Dose: 1 mg Morphine Sulfate (Morphine) 2 mg IVP Q4 PRN PRN Reason: Pain, severe (8-10) Ondansetron HCl (Zofran Inj) 4 mg IVP Q4 PRN PRN Reason: Nausea/Vomiting Pantoprazole Sodium (Protonix Inj) 40 mg IVP BID [facility] Last Admin: 01/29/18 09:45 Dose: 40 mg - Labs Labs: 01/29/18 05:30 01/29/18 05:30 PT 11.0 Seconds (9.8-13.1) 01/27/18 19:30 INR 1.0 (0.9-1.2) 01/27/18 19:30 APTT 33.0 Seconds (25.6-37.1) 01/27/18 19:30 - Head Exam Head Exam: ATRAUMATIC - Eye Exam Eye Exam: Normal appearance Pupil Exam: PERRL - Respiratory Exam Respiratory Exam: Clear to Ausculation Bilateral - Cardiovascular Exam Cardiovascular Exam: REGULAR RHYTHM - GI/Abdominal Exam GI & Abdominal Exam: Soft, Tenderness, Normal Bowel Sounds Additional comments: moderate epigastric tenderness Assessment and Plan (1) RUQ abdominal pain Assessment & Plan: Clinically better. Continue current management. Status: Acute
--- NOTE | 2018-01-29 22:34 | CP.PCM.PN ---
Subjective - Date & Time of Evaluation Date of Evaluation: 01/29/18 Time of Evaluation: 11:45 - Subjective Subjective: Feels better, abdominal pain is less. Denies n/v/f/c. No chest pain or sob Objective - Vital Signs/Intake and Output Vital Signs (last 24 hours): Temp Pulse Resp BP Pulse Ox 98.1 F 69 18 91/55 L 98 01/29/18 16:32 01/29/18 16:32 01/29/18 16:32 01/29/18 16:32 01/29/18 16:32 - Medications Medications: Current Medications Acetaminophen (Tylenol 325mg Tab) 650 mg PO Q6 PRN PRN Reason: Fever >100.4 F Famotidine (Pepcid) 20 mg IVP Q12 [facility] Last Admin: 01/29/18 21:52 Dose: 20 mg Ampicillin Sodium/Sulbactam (Sodium 3 gm/ Sodium Chloride) 100 mls @ 100 mls/ hr IVPB Q6 [facility] PRN Reason: Protocol Last Admin: 01/29/18 21:52 Dose: 100 mls/hr Morphine Sulfate (Morphine) 1 mg IVP Q4 PRN PRN Reason: Pain, moderate (4-7) Last Admin: 01/27/18 23:58 Dose: 1 mg Morphine Sulfate (Morphine) 2 mg IVP Q4 PRN PRN Reason: Pain, severe (8-10) Ondansetron HCl (Zofran Inj) 4 mg IVP Q4 PRN PRN Reason: Nausea/Vomiting Pantoprazole Sodium (Protonix Inj) 40 mg IVP BID [facility] Last Admin: 01/29/18 16:25 Dose: 40 mg - Labs Labs: 01/29/18 05:30 01/29/18 05:30 PT 11.0 Seconds (9.8-13.1) 01/27/18 19:30 INR 1.0 (0.9-1.2) 01/27/18 19:30 APTT 33.0 Seconds (25.6-37.1) 01/27/18 19:30 - Head Exam Head Exam: ATRAUMATIC, NORMOCEPHALIC - Respiratory Exam Respiratory Exam: Clear to Ausculation Bilateral, NORMAL BREATHING PATTERN - Cardiovascular Exam Cardiovascular Exam: REGULAR RHYTHM, +S1, +S2 - GI/Abdominal Exam GI & Abdominal Exam: Soft, Normal Bowel Sounds - Neurological Exam Neurological Exam: Alert, Normal Gait, Oriented x3 - Psychiatric Exam Psychiatric exam: Normal Affect, Normal Mood - Skin Skin Exam: Normal Color, Warm Assessment and Plan (1) Cholecystitis Assessment & Plan: Continue IV antibiotics IVF For surgery tomorrow, NPO after midnight Pain medications prn Anti-emetics prn Surgery consult appreciated Status: Acute
[2018-01-30 07:36] LABS: PROTHROMBIN TIME 11.3 Seconds (9.8-13.1)
[2018-01-30 07:37] LABS: PARTIAL THROMBOPLASTIN TIME 30.8 Seconds (25.6-37.1)
[2018-01-30 08:32] LABS: HEMOGLOBIN 13.1 g/dL (12.0-16.0); MEAN CELL VOLUME 90.7 fl (81.0-99.0); MEAN CORPUSCULAR HEMOGLOBIN 30.9 pg (27.0-31.0); MEAN CORPUSCULAR HGB CONC 34.1 g/dL (33.0-37.0); RBC 4.23 Mil/uL (3.80-5.20); RED CELL DISTRIBUTION WIDTH 12.5 % (11.5-14.5); WHITE BLOOD COUNT 4.6 K/uL (4.8-10.8)
[2018-01-30 09:16] LABS: ALB/GLOB RATIO 1.3 (1.0-2.1); ALBUMIN 3.8 g/dL (3.5-5.0); ALT/SGPT 64 U/L (9-52); AST/SGOT 31 U/L (14-36); BLOOD UREA NITROGEN 14 mg/dl (7-17); CALCIUM 8.8 mg/dL (8.4-10.2); GFR AFRICAN-AMERICAN > 60; GFR NON-AFRICAN AMERICAN > 60
[2018-01-30] MEDS ORDERED: Propofol 10 mg/ml Inj (20 ML) ONE (09:26)
[2018-01-30] MEDS ORDERED: Succinylcholine 200 mg/10 ml Inj IV ONE (09:27)
[2018-01-30] MEDS ORDERED: Lidocaine 4% (Laryng-O-Jet) Kit MM ONE (09:27)
[2018-01-30] MEDS ORDERED: Rocuronium 10 mg/ml (5 ml) ONE (09:27)
[2018-01-30] MEDS ORDERED: Sodium Chloride 0.9% 1,000 ML IV ONE (09:50)
[2018-01-30] MEDS ORDERED: Lidocaine Hydrochloride 1% 10 ML ONE (09:55)
[2018-01-30] MEDS ORDERED: Bupivacaine 0.5% Inj(30mL) ONE (09:55)
[2018-01-30] MEDS ORDERED: Midazolam 2 MG/2 ML VIAL ONE (10:01)
[2018-01-30] MEDS ORDERED: Dexamethasone 4 mg/1 ml ONE (10:15)
[2018-01-30] MEDS ORDERED: ePHEDrine 50 mg/ml Inj ONE (10:25)
[2018-01-30] MEDS ORDERED: Bupivacaine 0.5% Inj(30mL) IJ ONE (10:38)
[2018-01-30] MEDS ORDERED: Neostigmine 1:1000 (1 mg/ml) Inj ONE (10:49)
--- NOTE | 2018-01-30 11:02 | RAD ---
HISTORY: Pre-op COMPARISON: No prior. TECHNIQUE: Chest PA and lateral FINDINGS: LUNGS: No active pulmonary disease. PLEURA: No significant pleural effusion identified. No pneumothorax apparent. CARDIOVASCULAR: Normal. OSSEOUS STRUCTURES: No significant abnormalities. VISUALIZED UPPER ABDOMEN: Normal. OTHER FINDINGS: None. IMPRESSION: No active disease.
--- NOTE | 2018-01-30 11:21 | PCM.SURG1 ---
Surgeon's Initial Post Op Note - Surgeon's Notes Surgeon: MD Emy Ophthalmic Surgical Assistant: Parul PGY2. PAYTON Joy, PGY1 Pre-Operative Diagnosis: Acute Cholecystitis Operative Findings: Inflammed gallbladder Post-Operative Diagnosis: Acute Cholecystitis Operation Performed: Laparoscopic cholecystectomy Specimen/Specimens Removed: Gallbladder Estimated Blood Loss: EBL {In ML}: 5 Date of Surgery/Procedure: 01/30/18 Time of Surgery/Procedure: 11:21
[2018-01-30] MEDS ORDERED: Dexamethasone 4 mg/1 ml IVP PRN (11:42)
[2018-01-30] MEDS: HYDROmorphone 0.5 mg/0.5 ml ISec IVP PRN ×4 (12:15→13:12)
--- NOTE | 2018-01-30 13:03 | OP ---
PROCEDURE DATE: PREOPERATIVE DIAGNOSIS: Acute cholecystitis. POSTOPERATIVE DIAGNOSIS: Acute cholecystitis. PROCEDURE: Laparoscopic cholecystectomy. SURGEON: David Quevedo MD GUEST SERVICE TEAM LEADER: . ANESTHESIOLOGIST: Tutu Martin MD TYPE OF ANESTHESIA: General with endotracheal intubation. IV FLUID INTAKE: Crystalloids. ESTIMATED BLOOD LOSS: 20 mL. INTRAOPERATIVE FINDINGS: Acute cholecystitis and cholelithiasis. SPECIMENS: Gallbladder with stones. BRIEF HISTORY: Ms. Nancy Portillo is a very pleasant 48-year-old female who came to the hospital complaining of epigastric right upper quadrant abdominal pain and upon further investigation, the patient was found to have acute cholecystitis. All the risks and benefits of the procedure were explained to the patient and with the patient having a full understanding of all the risks and benefits involved, informed consent was obtained and the patient was taken to the operating room for above-stated procedure. DESCRIPTION OF PROCEDURE: The patient was brought into the operating room and placed supine on the operating room table. Bilateral Flowtron boots were applied to the patient's lower extremities. After successful induction of anesthesia and successful endotracheal intubation by the anesthesia team, the patient's abdomen was prepped with ChloraPrep stick and draped in a standard surgical fashion. Prior to the beginning of the procedure, a time-out was called in the room and everyone in the room were in agreement. Using Veress needle, the patient's abdomen was entered at the umbilicus and pneumoperitoneum was achieved with good opening pressures. Once this was accomplished, using an 11 blade scalpel knife, approximately 1-cm incision was made in the umbilicus in the longitudinal fashion and subsequent to that, an 11-mm trocar was introduced into the patient's abdomen. At this point in time, 5-mm 0-degree scope was introduced into the patient's abdomen and the abdomen was inspected. We immediately were able to visualize the gallbladder that appeared to have some omental adhesions. Then attention was turned to the subxiphoid area. Using 11-blade scalpel knife, 5-mm incision was made in a transverse fashion and subsequent to that, another 5-mm trocar was introduced into the patient's abdomen. At this point in time, attention was turned to the right side of the patient's abdomen. Using a 11 blade scalpel knife, two 5-mm incisions were made in a transverse fashion with an 11 blade scalpel knife and subsequent to that, another two 5-mm trocar was introduced into the patient's abdomen. At this point in time, the gallbladder was grasped to the fundus and infundibulum, and using [place] dissector, cystic duct and cystic artery were dissected out and critical view of safety was achieved. At this point in time, cystic duct was clipped with 3 clips proximal and distal and transected with laparoscopic scissors. Same thing was done for the cystic artery; it was clipped with 2 clips proximal and 1 distal, and transected with laparoscopic scissors. At this point in time, gallbladder was dissected off the gallbladder fossa using hook electrical cautery. Once the gallbladder was completely freed up from the gallbladder fossa, EndoCatch bag was introduced into the patient's abdomen. Gallbladder was placed inside of the bag and the bag was closed. At this point in time, gallbladder fossa was inspected for hemostasis. Hemostasis was achieved with hook electrical cautery and subsequent to that, gallbladder fossa and abdominal cavity were copiously irrigated and the fluid was suctioned out. At this point in time, an 11-mm trocar together with the EndoCatch bag and gallbladder were removed from the patient's abdomen and passed off to the [facility] as a specimen. Fascial layer at the umbilical port site was closed with three interrupted 0 Vicryl sutures on UR-5 and UR-6 needles. Subsequent to that, the patient's abdomen was fully desufflated. The rest of the trocars were removed from the patient's abdomen and the skin was closed with 4-0 Monocryl suture in a running subcuticular fashion. At the end of the procedure, the incision sites were infiltrated with Marcaine anesthetic. The patient's abdomen was washed and dried, and Dermabond was applied to the side of the incisions. The patient was successfully extubated by the anesthesia team, transferred to the [facility], and taken to the recovery room in a stable condition. At the end of the procedure, all instrument counts, needles, and sponges were correct. David Quevedo MD
[2018-01-30] MEDS: Lactated Ringer's 1,000 ML IV SCH (13:24)
--- NOTE | 2018-01-30 19:17 | CP.PCM.PN ---
Subjective - Date & Time of Evaluation Date of Evaluation: 01/30/18 Time of Evaluation: 19:15 - Subjective Subjective: Feels tiresd, had surgery today. Has abd. pain at incision site. Denies N/V/F/C Objective - Vital Signs/Intake and Output Vital Signs (last 24 hours): Temp Pulse Resp BP Pulse Ox 98.3 F 74 18 91/52 L 96 01/30/18 18:05 01/30/18 18:05 01/30/18 18:05 01/30/18 18:05 01/30/18 18:05 Intake and Output: 01/30/18 01/31/18 18:59 06:59 Intake Total 1000 Balance 1000 - Medications Medications: Current Medications Acetaminophen (Tylenol 325mg Tab) 650 mg PO Q6 PRN PRN Reason: Fever >100.4 F Famotidine (Pepcid) 20 mg IVP Q12 [facility] TO [facility] Last Admin: 01/30/18 14:24 Dose: 20 mg Ampicillin Sodium/Sulbactam (Sodium 3 gm/ Sodium Chloride) 100 mls @ 100 mls/ hr IVPB Q6 RINA PRN Reason: Protocol Last Admin: 01/30/18 16:54 Dose: 100 mls/hr Lactated Ringer's (Lactated Ringer's) 1,000 mls @ 100 mls/hr IV .Q10H [facility] Last Admin: 01/30/18 13:24 Dose: 100 mls Morphine Sulfate (Morphine) 2 mg IVP Q4 PRN PRN Reason: Pain, severe (8-10) Last Admin: 01/30/18 14:52 Dose: 2 mg Ondansetron HCl (Zofran Inj) 4 mg IVP Q4 PRN PRN Reason: Nausea/Vomiting Oxycodone/Acetaminophen (Percocet 5/325 Mg Tab) 1 tab PO Q4 PRN PRN Reason: Pain, moderate (4-7) Stop: 02/02/18 11:23 Pantoprazole Sodium (Protonix Inj) 40 mg IVP BID [facility] Last Admin: 01/30/18 16:55 Dose: 40 mg - Labs Labs: 01/30/18 08:23 01/30/18 08:21 PT 11.3 Seconds (9.8-13.1) 01/30/18 06:35 INR 1.0 (0.9-1.2) 01/30/18 06:35 APTT 30.8 Seconds (25.6-37.1) 01/30/18 06:35 - Constitutional Appears: Well, No Acute Distress - Head Exam Head Exam: ATRAUMATIC - Respiratory Exam Respiratory Exam: Clear to Ausculation Bilateral, NORMAL BREATHING PATTERN - Cardiovascular Exam Cardiovascular Exam: REGULAR RHYTHM, +S1, +S2 - GI/Abdominal Exam GI & Abdominal Exam: Soft, Tenderness, Diminished Bowel Sounds - Neurological Exam Neurological Exam: Alert, CN II-XII Intact, Oriented x3 - Psychiatric Exam Psychiatric exam: Normal Affect, Normal Mood - Skin Skin Exam: Normal Color, Warm Assessment and Plan (1) Cholecystitis Assessment & Plan: S/p laparoscopic cholecystectomy IVF Pain medication Anti-emteics prn continue antibiotics On clear liquid diet Monitor labs Status: Acute
[2018-01-31] MEDS: Lactated Ringer's 1,000 ML IV SCH ×3 (00:29→08:30)
[2018-01-31] MEDS: Oxycodone/Acetaminophen 5/325 mg Tab PO PRN ×3 (06:36→14:12)
[2018-01-31 07:06] LABS: HEMOGLOBIN 13.3 g/dL (12.0-16.0); MEAN CELL VOLUME 91.2 fl (81.0-99.0); MEAN CORPUSCULAR HEMOGLOBIN 30.5 pg (27.0-31.0); MEAN CORPUSCULAR HGB CONC 33.4 g/dL (33.0-37.0); RBC 4.36 Mil/uL (3.80-5.20); RED CELL DISTRIBUTION WIDTH 12.9 % (11.5-14.5); WHITE BLOOD COUNT 8.6 K/uL (4.8-10.8)
[2018-01-31 07:34] LABS: ALB/GLOB RATIO 1.3 (1.0-2.1); ALBUMIN 4.2 g/dL (3.5-5.0); ALT/SGPT 94 U/L (9-52); AST/SGOT 63 U/L (14-36); BLOOD UREA NITROGEN 8 mg/dl (7-17); CALCIUM 9.2 mg/dL (8.4-10.2); GFR AFRICAN-AMERICAN > 60; GFR NON-AFRICAN AMERICAN > 60
--- NOTE | 2018-01-31 07:53 | CP.PCM.PN ---
Subjective - Date & Time of Evaluation Date of Evaluation: 01/31/18 Time of Evaluation: 07:35 - Subjective Subjective: General Surgery Note for Dr. Quevedo Patient seen and examined at bedside. No acute event overnight. She is s/p Laparoscopic cholecystectomy POD#1. Patient is complaining of mild pain. Denies fever/chills or nausea/vomiting. Passing gas and tolerating diet. No other complaints at this time. Objective - Vital Signs/Intake and Output Vital Signs (last 24 hours): Temp Pulse Resp BP Pulse Ox 98.5 F 60 18 107/67 99 01/31/18 03:25 01/31/18 03:25 01/31/18 03:25 01/31/18 03:25 01/31/18 03:25 - Medications Medications: Current Medications Acetaminophen (Tylenol 325mg Tab) 650 mg PO Q6 PRN PRN Reason: Fever >100.4 F Famotidine (Pepcid) 20 mg IVP Q12 [facility] Last Admin: 01/30/18 21:45 Dose: 20 mg Ampicillin Sodium/Sulbactam (Sodium 3 gm/ Sodium Chloride) 100 mls @ 100 mls/ hr IVPB Q6 RINA PRN Reason: Protocol Last Admin: 01/31/18 04:13 Dose: 100 mls/hr Lactated Ringer's (Lactated Ringer's) 1,000 mls @ 100 mls/hr IV .Q10H [facility] Last Admin: 01/31/18 02:04 Dose: 100 mls/hr Morphine Sulfate (Morphine) 2 mg IVP Q4 PRN PRN Reason: Pain, severe (8-10) Last Admin: 01/31/18 02:08 Dose: 2 mg Ondansetron HCl (Zofran Inj) 4 mg IVP Q4 PRN PRN Reason: Nausea/Vomiting Oxycodone/Acetaminophen (Percocet 5/325 Mg Tab) 1 tab PO Q4 PRN PRN Reason: Pain, moderate (4-7) Stop: 02/02/18 11:23 Last Admin: 01/31/18 06:36 Dose: 1 tab Pantoprazole Sodium (Protonix Inj) 40 mg IVP BID [facility] Last Admin: 01/30/18 16:55 Dose: 40 mg - Labs Labs: 01/31/18 06:30 01/31/18 06:30 PT 11.3 Seconds (9.8-13.1) 01/30/18 06:35 INR 1.0 (0.9-1.2) 01/30/18 06:35 APTT 30.8 Seconds (25.6-37.1) 01/30/18 06:35 - Constitutional Appears: No Acute Distress - Head Exam Head Exam: ATRAUMATIC, NORMOCEPHALIC - Eye Exam Eye Exam: Normal appearance - ENT Exam ENT Exam: Mucous Membranes Moist - Respiratory Exam Respiratory Exam: NORMAL BREATHING PATTERN - Cardiovascular Exam Cardiovascular Exam: REGULAR RHYTHM - GI/Abdominal Exam GI & Abdominal Exam: Soft, Tenderness (incisional), Normal Bowel Sounds. absent : Distended, Firm, Guarding, Rigid, Rebound Additional comments: surgical sites clean, dry and intact - Extremities Exam Extremities Exam: Normal Capillary Refill - Neurological Exam Neurological Exam: Alert, Awake, Normal Gait, Oriented x3 - Psychiatric Exam Psychiatric exam: Normal Affect, Normal Mood - Skin Skin Exam: Dry, Intact, Normal Color, Warm Assessment and Plan - Assessment and Plan (Free Text) Assessment: 48 F s/p laparoscopic cholecystectomy POD#1 Plan: -Regular diet -Clear for discharge from surgical standpoint -Augmentin for 5 days -Keep area clean and dry -Follow up as outpatient with Dr. Quevedo in 1-2 weeks -Discussed with Dr. Emy Casanova PGY1
[2018-01-31 08:39] VITALS: BP 104/64; PULSE 71; RESP 20; TEMP 98.6; O2SAT 98
[2018-01-31] MEDS ORDERED: Simethicone 80 mg Chewtab PO PRN (10:03)
--- NOTE | 2018-01-31 23:05 | CP.PCM.DIS ---
Provider - Provider Date of Admission: 01/27/18 17:07 Attending physician: Rubi Tong MD Time Spent in preparation of Discharge (in minutes): 25 Diagnosis - Discharge Diagnosis (1) Cholecystitis Status: Acute (2) Acute cholecystitis due to biliary calculus Status: Acute (3) Cholelithiasis Status: Acute Hospital Course - Lab Results Lab Results: Micro Results 01/27/18 11:53 Urine Urine Culture - Final No Growth (<1,000 CFU/ML) Most Recent Lab Values WBC 8.6 K/uL (4.8-10.8) D 01/31/18 06:30 RBC 4.36 Mil/uL (3.80-5.20) 01/31/18 06:30 Hgb 13.3 g/dL (12.0-16.0) 01/31/18 06:30 Hct 39.7 % (34.0-47.0) 01/31/18 06:30 MCV 91.2 fl (81.0-99.0) 01/31/18 06:30 MCH 30.5 pg (27.0-31.0) 01/31/18 06:30 MCHC 33.4 g/dL (33.0-37.0) 01/31/18 06:30 RDW 12.9 % (11.5-14.5) 01/31/18 06:30 Plt Count 235 K/uL (130-400) 01/31/18 06:30 MPV 9.1 fl (7.2-11.7) 01/29/18 05:30 Neut % (Auto) 51.5 % (50.0-75.0) 01/29/18 05:30 Lymph % (Auto) 31.4 % (20.0-40.0) 01/29/18 05:30 [place] % (Auto) 8.4 % (0.0-10.0) 01/29/18 05:30 Eos % (Auto) 7.7 % (0.0-4.0) H 01/29/18 05:30 Baso % (Auto) 1.0 % (0.0-2.0) 01/29/18 05:30 Neut # (Auto) 2.1 K/uL (1.8-7.0) 01/29/18 05:30 Lymph # (Auto) 1.3 K/uL (1.0-4.3) 01/29/18 05:30 [place] # (Auto) 0.3 K/uL (0.0-0.8) 01/29/18 05:30 Eos # (Auto) 0.3 K/uL (0.0-0.7) 01/29/18 05:30 Baso # (Auto) 0.0 K/uL (0.0-0.2) 01/29/18 05:30 PT 11.3 Seconds (9.8-13.1) 01/30/18 06:35 INR 1.0 (0.9-1.2) 01/30/18 06:35 APTT 30.8 Seconds (25.6-37.1) 01/30/18 06:35 Sodium 143 mmol/l (132-148) 01/31/18 06:30 Potassium 3.9 MMOL/L (3.6-5.0) 01/31/18 06:30 Chloride 103 mmol/L (98-107) 01/31/18 06:30 Carbon Dioxide 28 mmol/L (22-30) 01/31/18 06:30 Anion Gap 16 (10-20) 01/31/18 06:30 BUN 8 mg/dl (7-17) 01/31/18 06:30 Creatinine 0.6 mg/dl (0.7-1.2) L 01/31/18 06:30 Est GFR ( Amer) > 60 01/31/18 06:30 Est GFR (Non-Af Amer) > 60 01/31/18 06:30 Random Glucose 88 mg/dL (65-105) 01/31/18 06:30 Calcium 9.2 mg/dL (8.4-10.2) 01/31/18 06:30 Total Bilirubin 0.7 mg/dl (0.2-1.3) 01/31/18 06:30 AST 63 U/L (14-36) H D 01/31/18 06:30 ALT 94 U/L (9-52) H D 01/31/18 06:30 Alkaline Phosphatase 93 U/L (38-126) 01/31/18 06:30 Troponin I 0.0210 ng/mL (0.00-0.120) 01/27/18 12:58 Total Protein 7.4 G/DL (6.3-8.2) 01/31/18 06:30 Albumin 4.2 g/dL (3.5-5.0) 01/31/18 06:30 Globulin 3.2 gm/dL (2.2-3.9) 01/31/18 06:30 Albumin/Globulin Ratio 1.3 (1.0-2.1) 01/31/18 06:30 Lipase 117 U/L (23-300) 01/27/18 12:30 Urine Color Yellow (YELLOW) 01/27/18 11:53 Urine Clarity Slighty-cloudy (Clear) 01/27/18 11:53 Urine pH 5.0 (5.0-8.0) 01/27/18 11:53 Ur Specific [place] 1.029 (1.003-1.030) 01/27/18 11:53 Urine Protein Negative mg/dL (NEGATIVE) 01/27/18 11:53 Urine Glucose (UA) Neg mg/dL (Normal) 01/27/18 11:53 Urine Ketones Negative mg/dL (NEGATIVE) 01/27/18 11:53 Urine Blood Small (NEGATIVE) 01/27/18 11:53 Urine Nitrate Negative (NEGATIVE) 01/27/18 11:53 Urine Bilirubin Negative (NEGATIVE) 01/27/18 11:53 Urine Urobilinogen 2.0 mg/dL (0.2-1.0) H 01/27/18 11:53 Ur Leukocyte Esterase Trace Kenny/uL (Negative) 01/27/18 11:53 Urine RBC (Auto) 7 /hpf (0-3) H 01/27/18 11:53 Urine Microscopic WBC 1 /hpf (0-5) 01/27/18 11:53 Ur Squamous Epith Cells 1 /hpf (0-5) 01/27/18 11:53 Blood Type O POSITIVE 01/30/18 07:00 Blood Type Confirm O POSITIVE 01/30/18 08:21 Antibody Screen Negative 01/30/18 07:00 BBK History Checked No verified bt 01/30/18 07:00 - Hospital Course Hospital Course: A 48 year old female who presented with complains of abdominal pain x 2 months. The patient was found to have acute cholecystitis and had a laparoscopic cholecystectomy done. The patient is ambulating, voiding well and tolerating a regular diet. The patient was discharged home on oral antibiotics and given follow up instructions. Discharge Exam - Head Exam Head Exam: ATRAUMATIC, NORMOCEPHALIC - Respiratory Exam Respiratory Exam: Clear to PA & Lateral, NORMAL BREATHING PATTERN - Cardiovascular Exam Cardiovascular Exam: REGULAR RHYTHM, +S1, +S2 - GI/Abdominal Exam GI & Abdominal Exam: Normal Bowel Sounds, Tenderness (at surgical site) - Neurological Exam Neurological exam: Alert, CN II-XII Intact, Normal Gait, Oriented x3 - Skin Skin Exam: Dry, Normal Color, Warm Discharge Plan - Discharge Medications Prescriptions: Lactobacillus Acidophilus [Acidophilus Lactobacillus] 1 cap PO BID #10 capsule Amoxicillin/Clavulanate [Augmentin 875 MG-125 MG] 1 tab PO BID #10 tab - Follow Up Plan Condition: STABLE Disposition: HOME/ ROUTINE Instructions: Cholecystectomy (DC), Cholecystectomy, Laparoscopic Surgery Additional Instructions: hacer suzanne con el cirugano dentro 7-10 john. Referrals: David Quevedo MD [Staff Provider] - Chandler Frazier MD [Staff Provider] - Lea Paez MD [Family Provider] -
== END 2018-01-31 15:30 | disposition home or self-care (01) | DRG 494 ==
LOC: H.ER 11:22 → H.ERHOLD 17:07 → H.MEDSURG1 20:40
PROVIDERS: ADMIT Internal Medicine; ATTEND Internal Medicine
PROC: 0FT44ZZ Resection of Gallbladder, Percutaneous Endoscopic Approach (ICD-10-PCS; principal; 2018-01-30 10:30)
DX: K80.00 Calculus of gallbladder with acute cholecystitis without obstruction (principal); M81.0 Age-related osteoporosis without current pathological fracture; K29.70 Gastritis, unspecified, without bleeding